=== PATIENT | female | born 1960 | race Two or more races ===

== ENCOUNTER 2020-09-19 09:08 | Outpatient (REF) | payer MEDICAID, SELFPAY ==
--- NOTE | ~2020-09-19 | XR_ITS ---
EXAMINATION: LUMBAR SPINE AND PELVIS X-RAY CLINICAL INFORMATION: Arthropathic psoriasis COMPARISON: None TECHNIQUE: 3 views of the lumbar spine and 1 view of the pelvis FINDINGS: Lumbar spine: Bone alignment is normal. No fracture or dislocation is seen. There is degenerative disc disease at L2-L3. There is lower lumbar spine facet arthritis. There is evidence of atherosclerotic. Pelvis: Bone alignment is normal. No fracture or dislocation is seen. The hip joints are normal. The sacroiliac joints are normal. Soft tissues are normal. XR/XR lumbar spine 2-3V IMPRESSION: Lumbar spine: Degenerative disc disease at L2-L3 and lower lumbar spine facet arthritis. Pelvis: Unremarkable exam.
--- NOTE | ~2020-09-19 | XR_ITS ---
EXAMINATION: XR HAND, RIGHT XR HAND, LEFT CLINICAL INFORMATION: L40.50 - Arthropathic psoriasis, unspecified COMPARISON: None TECHNIQUE: Each hand is imaged in 3 views. There are total of 6 views. FINDINGS: Right: There is normal bony mineralization. No fracture, dislocation, or destructive process. No periarticular demineralization. The carpus shows no joint narrowing or erosive change or chondrocalcinosis. The MCP joints are normal. The PIP joints are normal. There are mild degenerative changes involving the DIP joints second, third, and fifth fingers. No erosive change. Left: There is normal bony mineralization. No fracture, dislocation, or destructive process. No periarticular demineralization. The carpus shows no joint narrowing or erosive change or chondrocalcinosis. The MCP joints are normal. The PIP joints are normal. There are mild degenerative changes involving the DIP joints second, third, and fifth fingers. No erosive change. XR/XR hand LT min 3V IMPRESSION: 1. Mild bilateral DIP degenerative change. No erosive changes. 2. Unremarkable bilateral carpus, MCP joints, and PIP joints.
--- NOTE | ~2020-09-19 | XR_ITS ---
EXAMINATION: LUMBAR SPINE AND PELVIS X-RAY CLINICAL INFORMATION: Arthropathic psoriasis COMPARISON: None TECHNIQUE: 3 views of the lumbar spine and 1 view of the pelvis FINDINGS: Lumbar spine: Bone alignment is normal. No fracture or dislocation is seen. There is degenerative disc disease at L2-L3. There is lower lumbar spine facet arthritis. There is evidence of atherosclerotic. Pelvis: Bone alignment is normal. No fracture or dislocation is seen. The hip joints are normal. The sacroiliac joints are normal. Soft tissues are normal. XR/XR pelvis 1-2V IMPRESSION: Lumbar spine: Degenerative disc disease at L2-L3 and lower lumbar spine facet arthritis. Pelvis: Unremarkable exam.
--- NOTE | ~2020-09-19 | XR_ITS ---
EXAMINATION: XR HAND, RIGHT XR HAND, LEFT CLINICAL INFORMATION: L40.50 - Arthropathic psoriasis, unspecified COMPARISON: None TECHNIQUE: Each hand is imaged in 3 views. There are total of 6 views. FINDINGS: Right: There is normal bony mineralization. No fracture, dislocation, or destructive process. No periarticular demineralization. The carpus shows no joint narrowing or erosive change or chondrocalcinosis. The MCP joints are normal. The PIP joints are normal. There are mild degenerative changes involving the DIP joints second, third, and fifth fingers. No erosive change. Left: There is normal bony mineralization. No fracture, dislocation, or destructive process. No periarticular demineralization. The carpus shows no joint narrowing or erosive change or chondrocalcinosis. The MCP joints are normal. The PIP joints are normal. There are mild degenerative changes involving the DIP joints second, third, and fifth fingers. No erosive change. XR/XR hand RT min 3V IMPRESSION: 1. Mild bilateral DIP degenerative change. No erosive changes. 2. Unremarkable bilateral carpus, MCP joints, and PIP joints.
[2020-09-19 10:37] LABS: MANUAL DIFF FLAG NO
[2020-09-19 11:03] LABS: Basophils Absolute Auto 0.1 X10*3/uL (0.0-0.2); Basophils Percent Auto 0.9 % (0-2); Eosinophils Absolute Auto 0.2 X10*3/uL (0.0-0.4); Eosinophils Percent Auto 2.7 % (0-4); Hematocrit 44.4 % (37-47); Hemoglobin 14.6 g/dl (12.0-16.0); Imm Gran Abs Auto 0.04 X10*3/uL (0.00-0.03); Imm Gran Pct Auto 0.5 % (0.0-0.4); Lymphocytes Absolute Auto 2.8 X10*3/uL (1.2-4.9); Lymphocytes Percent Auto 32.7 % (20-40); Mean Corpuscular HGB Conc 32.9 g/dl (31.0-35.0); Mean Corpuscular Hemoglobin 28.7 pg (27.0-33.0); Mean Corpuscular Volume 87.4 fL (80-98); Mean Platelet Volume 12.4 fL (9.4-12.3); Monocytes Absolute Auto 0.5 X10*3/uL (0.1-1.2); Monocytes Percent Auto 5.6 % (2-11); Neutrophils Percent Auto 57.6 % (45-73); Platelet Count 292 X10*3/uL (160-400); Red Blood Count 5.08 X10*6/uL (4.20-5.50); Red Cell Distribution Width 14.2 % (11.0-16.0); White Blood Count 8.6 X10*3/uL (4.8-10.8)
[2020-09-19 11:19] LABS: Alanine Aminotransferase 12 U/L (0-31); Albumin Level 4.5 g/dL (3.5-5.0); Alkaline Phosphatase 94 U/L (39-117); Anion Gap 14 (12-20); Aspartate Amino Transferase 16 U/L (5-31); Bilirubin Total 0.5 mg/dL (0.0-1.0); Blood Urea Nitrogen 11 mg/dL (9-16); C Reactive Protein 0.49 mg/dL (< or = 0.50); Calcium 9.6 mg/dL (8.4-10.2); Carbon Dioxide 26 mmol/L (22-29); Chloride 107 mmol/L (96-108); Estimated Glomerular Filt Rate > 60; Glucose Random 89 mg/dL (60-115); Potassium 4.8 mmol/L (3.3-5.1); Rheumatoid Factor < 15.0 IU/mL (<15.0); Sodium 142 mmol/L (135-145); Total Protein 6.9 g/dL (6.5-8.0)
[2020-09-19 11:26] LABS: HBc Num1 0.07 S/CO (0.00-0.79); HBsAGNum1 0.23 S/CO (0.00-0.99); Hepatitis B Core Antibody Nonreactive (Nonreactive); Hepatitis B Surface Antigen Negative (Negative); ~Hepatitis B Surface Antibody REACTIVE (Nonreactive)
[2020-09-19 11:39] LABS: Hepatitis A Antibody IgM 0.15 Index (0-0.79); ~HepC Num1 0.09 S/CO (0.00-0.79); ~Hepatitis A Antibody IgM Nonreactive (Nonreactive); ~Hepatitis C Antibody Nonreactive (Nonreactive)
[2020-09-19 12:31] LABS: Erythrocyte Sedimentation Rate 8 MM/HR (0-20)
[2020-09-21 20:41] LABS: TS Negative Control Passed; TS Panel A 0; TS Panel B 0; TS Positive Control Passed; TSpotTB Negative (SeeBelow)
[2020-09-23 17:46] LABS: Cyclic Citrullinated Peptide <16 UNITS
== END 2020-09-19 09:09 | disposition home or self-care (01) ==
LOC: HO.LAB 09:08
PROVIDERS: PCP Internal Medicine; Visit Provider Student in an Organized Health Care Education/Training Program
DX: Z11.1 Encounter for screening for respiratory tuberculosis (principal); Z01.84 Encounter for antibody response examination; L40.50 Arthropathic psoriasis, unspecified; L40.9 Psoriasis, unspecified; Z79.899 Other long term (current) drug therapy
CPT/HCPCS: 36415; 72100; 72170; 73130; 80053; 85025; 85652; 86140; 86200; 86431; 86481; 86704; 86706; 86709; 86803; 87340; 99202

== ENCOUNTER → 2020-10-10 10:07 | Outpatient (BNVA) | payer MEDICAID, SELFPAY | PROVIDERS: PCP Internal Medicine; Visit Provider Student in an Organized Health Care Education/Training Program | DX: L40.50 Arthropathic psoriasis, unspecified (principal); L40.9 Psoriasis, unspecified | CPT/HCPCS: 99212 ==

== ENCOUNTER 2020-10-24 15:43 | Outpatient (REF) | payer MEDICAID, SELFPAY ==
--- NOTE | ~2020-10-24 | MR_ITS ---
EXAMINATION: MR PELVIS WITHOUT CONTRAST CLINICAL INFORMATION: Arthropathic psoriasis, unspecified. COMPARISON: Radiograph dated 09/19/2020 TECHNIQUE: Multiplanar MR imaging was obtained through the pelvis without contrast material on a 1.5 Bethanie magnet. FINDINGS: BONES AND CARTILAGE: No fractures. There is mild focal marrow edema signal at the right femoral greater trochanter at the gluteus medius insertion. Marrow signal is otherwise normal. There is mild arthrosis in the SI joints bilaterally, characterized by subtle subchondral sclerosis and articular cortical irregularity. There is minimal subchondral edema at the sacral portion of the right SI joint anteroinferiorly. No discrete erosions are identified. No effusion or appreciable synovitis. Hip joints appear relatively well-preserved on these images without significant cartilage loss. Acetabular labral evaluation is somewhat limited on these large [id number] studies. LOWER LUMBAR SPINE: There is degenerative disc disease in the lower lumbar spine at L3-L4. Facet arthropathy is suspected in the lower lumbar spine at L4-L5 and L5-S1 with grade 1 anterolisthesis of L5 on S1. Assessment of the central canal and neural foramina is limited on these images. TENDONS AND MUSCLES: There is moderate insertional tendinosis of the right gluteus medius with peritendinous edema, likely correspond to enthesitis. There is more [id number] right gluteus minimus tendinosis. No discrete tears are identified. There is mild atrophy and fatty replacement of both gluteus minimus muscles. There is more mild tendinosis at the left gluteus medius and minimus with mild peritendinous edema. A degree of enthesopathy is also likely present on the left. Hamstring tendons are intact with mild left hamstring tendinosis at the origin. Aponeurotic attachments at the pubic symphysis are normal. Iliopsoas muscles and tendons are unremarkable. JOINT FLUID AND BURSAE: There is edema signal in the trochanteric bursae bilaterally, likely reactive to the underlying tendinopathy/enthesopathy. No bursitis. No joint effusions. LIGAMENTUM TERES: Not seen, likely developmentally absent. Mild colonic diverticulosis. No acute intrapelvic soft tissue abnormalities are identified. MR/MR pelvis wo con IMPRESSION: 1. 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 More mild tendinosis and enthesitis at the left gluteus minimus and medius. 2. Mild osteoarthritis of the SI joints. No evidence of sacroiliitis. 3. Degenerative spondylosis in the lower lumbar spine. 4. Mild left hamstring tendinosis.
== END 2020-10-24 15:44 | disposition home or self-care (01) ==
LOC: HO.MRI 15:43
PROVIDERS: Visit Provider Student in an Organized Health Care Education/Training Program
DX: L40.50 Arthropathic psoriasis, unspecified (principal)
CPT/HCPCS: 72195